=== PATIENT | male | born 1985 ===

== ENCOUNTER 2018-12-02 16:49 | Emergency (ER) | payer SELFPAY ==
[2018-12-02 16:49] VITALS: BMI 26.3
[2018-12-02 17:00] VITALS: BP 115/76; PULSE 91; RESP 18; TEMP 97.9; O2SAT 98
--- NOTE | 2018-12-02 17:41 | C.PDOC ---
History Of Present Illness 33 y/o male presents to the ED for evaluation of left hand pain. States he slipped and fell last night while going up stairs. Contrary to triage he now complains of left hand 3rd digit pain. This morning he bought a finger splint at the pharmacy, which he has been wearing without improvement. He denies any other injury. Denies extremity weakness, numbness, or open wounds. Time Seen by Provider: 12/02/18 17:05 Chief Complaint (Nursing): Finger,Hand,&Wrist History Per: Patient History/Exam Limitations: no limitations Onset/Duration Of Symptoms: Hrs Current Symptoms Are (Timing): Still Present Past Medical History Reviewed: Historical Data, Nursing Documentation, Vital Signs Vital Signs: Last Vital Signs Temp 97.9 F 12/02/18 16:56 Pulse 91 H 12/02/18 16:56 Resp 18 12/02/18 16:56 BP 115/76 12/02/18 16:56 Pulse Ox 98 12/02/18 16:56 - Medical History PMH: Asthma Denies: Depression Surgical History: Appendectomy, Tonsillectomy - [facility] Procedures CLOSED ENDOSCOPIC BIOPSY OF LARGE INTESTINE (09/04/12) ESOPHAGOGASTRODUODENOSCOPY [EGD] W/CLOSED BIOPSY (09/04/12) INJECT/INFUSE NEC (01/03/13) NEBULIZER THERAPY (01/03/13) Family History: States: Unknown Family Hx - Social History Hx Tobacco Use: Yes (0.5 PPD) Hx Alcohol Use: Yes Hx Substance Use: No - Immunization History Hx Tetanus Toxoid Vaccination: No Hx Influenza Vaccination: No Hx Pneumococcal Vaccination: No Review Of Systems Except As Marked, All Systems Reviewed And Found Negative. Constitutional: Negative for: Fever Musculoskeletal: Positive for: Hand Pain (left 3rd digit) Skin: Negative for: Lesions, Bruising Neurological: Negative for: Weakness, Numbness Physical Exam - Physical Exam Appears: Non-toxic, No Acute Distress Skin: Warm, Dry, No Rash Head: Atraumatic, Normacephalic Eye(s): bilateral: Normal Inspection Oral Mucosa: Moist Neck: Normal ROM, Supple Chest: Symmetrical, No Tenderness Cardiovascular: No Friction Rub, No Murmur Respiratory: No Accessory Muscle Use, Other (Speaking in complete sentences) Extremity: Tenderness (to the left 3rd digit at PIP joint), Capillary Refill (< 2 sec), No Deformity, Swelling (Moderate swelling to the left 3rd digit at PIP joint ), Other (Pain with ROM of digit) Pulses: Left Radial: Normal, Right Radial: Normal Neurological/Psych: Oriented x3, Normal Motor, Normal Sensation ED Course And Treatment O2 Sat by Pulse Oximetry: 98 (RA) Pulse Ox Interpretation: Normal - Other Rad L Hand XR X-Ray: Read By Radiologist Interpretation: Accession No. : [id number]. Patient Name / ID : RAF NEWMAN / [id number]. Exam Date : 12/02/2018 17:43:10 ( Approved ). Study Comment : Sex / Age : M / 33Y. Creator : Semaj Nolan MD. Dictator : Semaj Nolan MD. Scaffolder : Allied Health Instructor : Semaj Nolan MD. Approver2 : Report Date : 12/02/2018 17:55:36. My Comment : . Date of service: 12/02/2018. PROCEDURE: Left middle finger radiographs. HISTORY: injury and swelling of the 3rd finger. COMPARISON: None. TECHNIQUE: AP radiograph of the left hand, as well as spot oblique and lateral images of left middle finger were obtained. FINDINGS: LEFT MIDDLE FINGER: Left middle finger normal, without fracture of focal lesion. Remainder of the left hand (as seen on the AP view) is grossly unremarkable. JOINTS: Normal. SOFT TISSUES: Normal. OTHER FINDINGS: None. IMPRESSION: Normal left middle finger radiographs. Medical Decision Making Medical Decision Making: Initial Plan: - 600 mg PO Motrin - Left hand x-ray Imaging reviewed, discussed with patient. Finger splint was placed to the finger. Disposition - Disposition Referrals: Jacey Crane MD [Staff Provider] - Sarai Sheldon MD [Staff Provider] - Disposition: HOME/ ROUTINE Disposition Time: 18:31 Condition: GOOD Additional Instructions: Follow up with the medical doctor within 1-2 days. Return if worsened. Prescriptions: Ibuprofen [Motrin] 600 mg PO TID #21 tab Instructions: Finger Sprain (DC) Forms: [facility] ([place]), Work Excuse - Clinical Impression Clinical Impression: Finger sprain - PA / NEUROPHYSIOLOGIST / Resident Statement MD/DO has reviewed & agrees with the documentation as recorded. - Scribe Statement The provider has reviewed the documentation as recorded by the Scribe Salima Lam All medical record entries made by the Scribe were at my direction and personally dictated by me. I have reviewed the chart and agree that the record accurately reflects my personal performance of the history, physical exam, medical decision making, and the department course for this patient. I have also personally directed, reviewed, and agree with the discharge instructions and disposition.
--- NOTE | 2018-12-02 17:59 | RAD ---
Date of service: 12/02/2018 PROCEDURE: Left middle finger radiographs. HISTORY: injury and swelling of the 3rd finger COMPARISON: None. TECHNIQUE: AP radiograph of the left hand, as well as spot oblique and lateral images of left middle finger were obtained. FINDINGS: LEFT MIDDLE FINGER: Left middle finger normal, without fracture of focal lesion. Remainder of the left hand (as seen on the AP view) is grossly unremarkable. JOINTS: Normal. SOFT TISSUES: Normal. OTHER FINDINGS: None. IMPRESSION: Normal left middle finger radiographs.
== END 2018-12-02 19:37 | disposition home or self-care (01) ==
LOC: C.ER 16:49
DX: S63.613A Unspecified sprain of left middle finger, initial encounter (principal); W01.0XXA Fall on same level from slipping, tripping and stumbling without subsequent striking against object, initial encounter